=== PATIENT | male | born 1950 | race Caucasian/White ===

== ENCOUNTER 2016-05-31 14:16 | Emergency (ER) | payer BC ==
[~2016-05-31 14:16] MED LIST: *UNABLE2; AMIT50 PO; ASA5GR PO; ASAEC PO; B12250T PO; CEFT5; CEFT5 PO; COREG3 PO; CYANOCOBALAMIN PO; DSS PO; DURA25 TOP; FLAG500TAB PO; FLEX PO; FLORASTOR250 MG PO; FOLIC PO; HALF81 PO; KLONO1 PO; KLONO5 PO; LEVAQUIN750 MG PO; LIPITOR40 PO; LORTAB10 PO; LYRICA50 PO; MONOKET PO; MUCINEX1200 MG PO; NEUR400 PO; NEUR800 PO; NITROSTAT0.4 MG SL; OPANA ER15 MG PO; OXYCON10 PO; P10 PO; PCET PO; PERCOCET1 TA4 PO; PLAVIX PO; PRILO PO; PRIN2.5 PO; PROAIR HFA INH; PROZ10 PO; ROXICODONE15 MG PO; SYMBICORT 160/41 INH INH; TOPAMAX25 PO; TUMSROLL PO; TYLOX1 CAP PO; ULTRAM50 PO; WELLXL300 PO; ZANAFLEX2 MG PO; ZITHROMAX500 MG PO; [UNRECOGNIZED DRUG - REMARK]
[2016-12-04] MEDS ORDERED: NEUR600 PO (16:24)
== END 2016-05-31 16:22 | disposition home or self-care (01) ==
LOC: ER 14:16
PROC: 0RSXXZZ Reposition Left Finger Phalangeal Joint, External Approach (ICD-10-PCS; principal; 2016-05-31)
DX: S63.283A Dislocation of proximal interphalangeal joint of left middle finger, initial encounter (principal); J44.9 Chronic obstructive pulmonary disease, unspecified; I10 Essential (primary) hypertension; K21.9 Gastro-esophageal reflux disease without esophagitis; F32.9 Major depressive disorder, single episode, unspecified; F41.9 Anxiety disorder, unspecified; F17.200 Nicotine dependence, unspecified, uncomplicated; Z87.01 Personal history of pneumonia (recurrent); Z88.5 Allergy status to narcotic agent; Z79.82 Long term (current) use of aspirin; Z79.899 Other long term (current) drug therapy; W19.XXXA Unspecified fall, initial encounter
CPT/HCPCS: 73140-LT; 99283